=== PATIENT | male | born 1965 | race Hispanic/Latino ===

== ENCOUNTER 2017-05-14 09:17 | Day surgery (SDC) | payer OTHER ==
[2017-05-14] MEDS ORDERED: Lactated Ringer's 1,000 ML IV ONE (09:36)
[2017-05-14] MEDS ORDERED: Lidocaine 2% MPF (5 ml) Inj ONE (10:33)
[2017-05-14] MEDS ORDERED: Propofol 10 mg/ml Inj (20 ML) ONE (10:33)
[2017-05-14 11:01] VITALS: TEMP 96.8
[2017-05-14 11:17] VITALS: BP 110/60; PULSE 54; RESP 15; O2SAT 100
== END 2017-05-14 11:31 | disposition home or self-care (01) ==
LOC: H.ENDO 09:17
PROVIDERS: ATTEND Internal Medicine Gastroenterology
DX: Z12.11 Encounter for screening for malignant neoplasm of colon (principal); E11.9 Type 2 diabetes mellitus without complications; E78.5 Hyperlipidemia, unspecified; M10.9 Gout, unspecified; K64.8 Other hemorrhoids
CPT/HCPCS: 45378; 82948; J2704; J7120